=== PATIENT | male | born 2000 | race Caucasian/White ===

== ENCOUNTER 2021-06-26 16:41 | Emergency (ER) | payer MEDICAID ==
[~2021-06-26] VITALS: Ht 172.7 cm; Wt 95.3 kg
[2021-06-26 16:44] VITALS: BP 160/108
[2021-06-26] MEDS ORDERED: KETOROLAC 30 MG/ML VIAL IM ONE (17:20)
--- NOTE | 2021-06-26 17:30 | NUR ---
20 Y/O MALE C/O LOWER BACK PAIN X TODAY. STATES 7/10 SHARP CONSTANT PAIN. MORE PAIN UPON MOVEMENT. PMH: BACK INJURY LAST YEAR NKDA
[2021-06-26] MEDS ORDERED: ACET-8386 PO (18:32)
[2021-06-26] MEDS ORDERED: LID5T TP (18:32)
[2021-06-26] MEDS ORDERED: IBUP-2213 PO (18:32)
[2021-06-26 18:49] VITALS: BP 160/108
--- NOTE | 2021-06-26 18:49 | NUR ---
Patient discharged with v/s stable. Written and verbal after care instructions given and explained. Patient alert, oriented and verbalized understanding of instructions. Ambulatory with steady gait. All questions addressed prior to discharge. ID band removed. Patient advised to follow up with PMD. Rx of IBUPROFEN, LIDOERM 5 % PATCH, HYDROCODONE-ACETAMINOPHEN given. Patient educated on indication of medication including possible reaction and side effects. Opportunity to ask questions provided and answered.
== END 2021-06-26 18:49 | disposition home or self-care (01) ==
LOC: MED 16:41
DX: S39.012A Strain of muscle, fascia and tendon of lower back, initial encounter (principal); R03.0 Elevated blood-pressure reading, without diagnosis of hypertension; Z79.899 Other long term (current) drug therapy; X50.9XXA Other and unspecified overexertion or strenuous movements or postures, initial encounter; Y93.89 Activity, other specified; Y92.89 Other specified places as the place of occurrence of the external cause; Y99.8 Other external cause status
CPT/HCPCS: 81002; 99283; J1885